=== PATIENT | male | born 1990 | race African-American/Black ===

== ENCOUNTER 2020-06-17 12:19 | Emergency (ER) | payer OTHER ==
[~2020-06-17] VITALS: Ht 180.3 cm; Wt 68.0 kg
[2020-06-17 12:52] LABS: ABSOLUTE NEUTROPHILS 5.7 thou/uL (1.4-8.2); BASOPHILS 0.5 % (0.0-2.0); EOSINOPHILS 0.2 % (0.0-3.0); HEMATOCRIT 43.5 % (42.0-52.0); HEMOGLOBIN 14.8 gm/dL (14.0-18.0); LYMPHOCYTES 24.9 % (24.0-44.0); MCH 31.1 pg (26.0-34.0); MCHC 33.9 g/dL (28.0-37.0); MCV 91.8 fL (80.0-100.0); MONOCYTES 6.2 % (1.0-8.0); PLATELET COUNT 176 thou/uL (150-400); POLYS 68.2 % (36.0-66.0); RBC 4.74 mil/uL (4.50-6.00); WBC 8.3 thou/uL (4.0-11.0)
[2020-06-17 12:55] LABS: CALCIUM 8.9 mg/dL (8.5-10.1); CREATININE 1.4 mg/dL (0.7-1.3); POTASSIUM 3.2 mmol/L (3.5-5.1)
[2020-06-17 13:00] LABS: URINE BLOOD NEGATIVE (Negative); URINE CLARITY CLOUDY; URINE COLOR YELLOW; URINE GLUCOSE-RANDOM* NEGATIVE (Negative); URINE KETONES 3+ (Negative); URINE LEUKOCYTES-REFLEX NEGATIVE (Negative); URINE NITRITE-REFLEX NEGATIVE (Negative); URINE PROTEIN (DIPSTICK) TRACE (Negative)
[2020-06-17 13:01] LABS: ALBUMIN 4.1 g/dL (3.4-5.0); TOTAL BILIRUBIN 0.7 mg/dL (0.2-1.0); TOTAL PROTEIN 7.7 g/dL (6.4-8.2)
[2020-06-17 13:13] LABS: ICTOTEST (BILI CONFIRMATORY) Negative (Negative); URINE BILIRUBIN NEGATIVE (Negative)
[2020-06-17 13:14] LABS: URINE REDUCING SUBSTANCE NEGATIVE
[2020-06-17 13:20] LABS: CASTS None Seen /LPF (None Seen); MUCUS None Seen strn/LPF (None Seen); SQUAMOUS 0-3 Few /LPF (0-3); URINE WBC-REFLEX 0-5 Rare /HPF (0-5)
[2020-06-17 13:21] LABS: BACTERIA-REFLEX 1-9 Few /HPF (None Seen); URINE RBC None Seen /HPF (0-2)
[2020-06-17 13:23] LABS: AMORPHOUS PHOSPHATES Moderate /LPF (None Seen)
[2020-06-17] MEDS ORDERED: CIPRO500 M1 PO (15:33)
[2020-06-17] MEDS ORDERED: FLAGYL500 M1 PO (15:33)
[2020-06-17] MEDS ORDERED: BENTYL 10 MG CA10 MG PO (15:33)
[2020-06-17] MEDS ORDERED: REGLAN 10 MG TA10 MG PO (15:33)
[2020-06-17 16:28] VITALS: BP 148/82
== END 2020-06-17 16:30 | disposition home or self-care (01) ==
LOC: ER 12:19
PROVIDERS: Nurse Practitioner Family
DX: K52.9 Noninfective gastroenteritis and colitis, unspecified (principal)